=== PATIENT | male | born 1945 ===

== ENCOUNTER → 2016-10-10 | Outpatient (CLI) | payer MEDICARE, OTHER ==
[~2016-10-10] MED LIST: ARTIFICIAL TEAR15 ML OPHTH; ASPIRIN LO-DOSE81 MG PO; CERAVE237 ML TOP; CLOBETASOL PROP60 G1 TOP; COZAAR50 MG PO; NORVASC5 MG PO; PRAVACHOL40 MG PO; THERA-VITE W/ B1 TAB PO; XARELTO15 MG PO
== END | disposition disaster alternative care site (69) ==
LOC: LHSC 11:42
DX: D12.6 Benign neoplasm of colon, unspecified (principal); Z12.11 Encounter for screening for malignant neoplasm of colon; K62.5 Hemorrhage of anus and rectum